=== PATIENT | male | born 1975 | race Hispanic/Latino ===

== ENCOUNTER 2021-05-10 10:21 | Emergency (ER) | payer SELFPAY ==
[~2021-05-10] VITALS: Ht 167.6 cm; Wt 81.6 kg
[2021-05-10] MEDS ORDERED: AUGMENTIN 500-1 EACH PO (11:03)
== END 2021-05-10 11:24 | disposition home or self-care (01) ==
LOC: FSED 10:26
DX: J02.0 Streptococcal pharyngitis (principal); F17.210 Nicotine dependence, cigarettes, uncomplicated
CPT/HCPCS: 83518; 99283